=== PATIENT | female | born 1985 | race Two or more races ===

== ENCOUNTER → 2017-06-19 | Emergency (ER) | payer OTHER ==
[~2017-06-19] VITALS: Ht 167.6 cm; Wt 67.1 kg
[~2017-06-19] MED LIST: OSEL75CA PO; PEPCID40 MG PO; PHENERGAN25 MG PO; PRENATABS RX T1 EACH PO
== END | disposition home or self-care (01) ==
LOC: ER 02:04
DX: K29.70 Gastritis, unspecified, without bleeding (principal); J11.1 Influenza due to unidentified influenza virus with other respiratory manifestations

== ENCOUNTER 2018-01-03 07:29 | Outpatient (CLI) | payer OTHER | END 2018-01-03 07:30 | disposition home or self-care (01) | LOC: SONOGRAMA 07:29 | DX: R10.2 Pelvic and perineal pain (principal) ==

== ENCOUNTER 2018-01-05 07:00 | Inpatient (IN) | payer OTHER ==
[~2018-01-05] VITALS: Ht 167.6 cm; Wt 77.1 kg
[2018-01-05] MEDS ORDERED: FERRO-TIME325 MG PO (09:02)
== END 2018-01-08 16:36 | DRG 775 ==
LOC: OB/GYN 07:00 → O/R 07:00 → LDR 08:52 → OB/GYN 01-06 11:56 → LDR 01-07 11:30 → OB/GYN 01-08 16:36
PROC: 10E0XZZ Delivery of Products of Conception, External Approach (ICD-10-PCS; principal; 2018-01-06)
PROC: 0KQM0ZZ Repair Perineum Muscle, Open Approach (ICD-10-PCS; 2018-01-06)
PROC: 3E0P7VZ Introduction of Hormone into Female Reproductive, Via Natural or Artificial Opening (ICD-10-PCS; 2018-01-06)
PROC: 3E033VJ Introduction of Other Hormone into Peripheral Vein, Percutaneous Approach (ICD-10-PCS; 2018-01-06)
PROC: 4A033R1 Measurement of Arterial Saturation, Peripheral, Percutaneous Approach (ICD-10-PCS; 2018-01-06)
PROC: 4A1HXCZ Monitoring of Products of Conception, Cardiac Rate, External Approach (ICD-10-PCS; 2018-01-06)
DX: O70.1 Second degree perineal laceration during delivery (principal); Z37.0 Single live birth; Z3A.39 39 weeks gestation of pregnancy